=== PATIENT | male | born 1995 | race Caucasian/White ===

== ENCOUNTER 2018-05-07 18:49 | Emergency (ER) | payer OTHER ==
[~2018-05-07] VITALS: Ht 182.9 cm; Wt 112.2 kg
[~2018-05-07 18:49] MED LIST: FLUO40CA8 PO; LAMO200T35 PO; LURA40TA PO
[2018-05-07 19:00] VITALS: TEMP 37.3; Ht 182.9 cm; Wt 112.2 kg
[2018-05-07] MEDS ORDERED: OPTIRAY 320 IV PRN (19:45)
[2018-05-07 19:53] LABS: BASO % 0.3 %; BASO ABS # 0.02 K/uL (0-0.2); EOS % 0.4 %; EOS ABS # 0.03 K/uL (0-0.5); HEMATOCRIT 44.8 % (42-52); HEMOGLOBIN 15.5 g/dL (14.0-18.0); IG# 0.02 K/uL (0.00-0.02); LYMPH % 25.8 %; LYMPH ABS # 1.76 K/uL (1.2-3.4); MEAN CELL VOLUME 83.1 fL (80-100); MEAN CORPUSCULAR HEMOGLOBIN 28.8 pg (25-34); MEAN CORPUSCULAR HGB CONC 34.6 g/dl (32-36); MEAN PLATELET VOLUME 11.9 fL (7.4-10.4); MONO % 9.5 %; MONO ABS # 0.65 K/uL (0.11-0.59); NEUT % 63.7 %; NEUT ABS # 4.35 K/uL (1.4-6.5); PLATELET COUNT 167 K/uL (130-400); RED CELL DISTRIBUTION WIDTH CV 12.7 % (11.5-14.5); RED CELL DISTRIBUTION WIDTH SD 38.2 fL (36.4-46.3); WHITE BLOOD COUNT 6.83 K/uL (4.8-10.8)
[2018-05-07] MEDS ORDERED: IBUP-1428 PO (20:06)
[2018-05-07 20:16] LABS: ALBUMIN 4.5 gm/dl (3.4-5.0); CALCIUM 9.5 mg/dl (8.5-10.1); POTASSIUM 3.5 mmol/L (3.5-5.1); TOTAL PROTEIN 7.6 gm/dl (6.4-8.2)
--- NOTE | 2018-05-07 22:31 | DIAGNOSTIC IMAGING REPORT ---
CT SCAN OF THE ABDOMEN AND PELVIS WITH IV CONTRAST CLINICAL HISTORY: Lower abdominal pain. Constipation. COMPARISON STUDY: No priors. TECHNIQUE: Following the IV administration of 114 cc of Optiray 320, CT scan of the abdomen and pelvis is performed from the lung bases to the proximal femora. Images are reviewed in the axial, sagittal, and coronal planes. IV contrast was administered without complication. A dose lowering technique was utilized adhering to the principles of ALARA. CT DOSE: 768.42 mGy.cm FINDINGS: Lung bases: The heart is normal in size and without pericardial effusion. The lung bases are clear. Liver: The contrast-enhanced liver is normal in size, contour, and attenuation. There is no intrahepatic biliary ductal dilatation. The hepatic veins and portal veins are patent. Gallbladder: Unremarkable. Spleen: Normal in size and attenuation. Pancreas: Unremarkable. Adrenal glands: Unremarkable. Kidneys: The contrast enhanced kidneys are normal in size and without hydronephrosis. The kidneys enhance symmetrically. A subcentimeter cortical hypodensity arising exophytically from the interpolar right kidney on image #144 likely represents a tiny cyst but is too small for definitive characterization. Abdominal vasculature: The abdominal aorta is normal in course and caliber. 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 Prominent retroperitoneal venous collaterals are seen around both kidneys. Bowel: The small bowel and colon are normal in course and caliber. The appendix is well-visualized and normal. Peritoneum: There is no intraperitoneal free air or abdominal ascites. There is a small fat-containing umbilical hernia. Lymphadenopathy: There are numerous subcentimeter mesenteric lymph nodes. No pathologically enlarged lymph nodes identified in the abdomen or pelvis. Pelvic viscera: The bladder, prostate, and seminal vesicles are normal as visualized. There is a small fat-containing right inguinal hernia. Skeletal structures: No lytic or blastic lesions are seen. IMPRESSION: 1. There are numerous subcentimeter mesenteric lymph nodes. This findings of indeterminate significance, and could be seen in the setting of a nonspecific enteritis or possibly mesenteric adenitis. Cortical correlation will be required. 2. No additional infectious or inflammatory findings are identified in the abdomen or pelvis. 3. 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 Electronically signed by: Rafael Flores M.D. 05/07/2018 10:29 PM Dictated Date/Time: 05/07/2018 10:20 PM
[2018-05-07] MEDS ORDERED: ONDA4TAB10 SL (22:50)
--- NOTE | 2018-05-07 22:51 | EMERGENCY ROOM VISIT NOTE ---
History First contact with patient: 19:14 Chief Complaint: OTHER COMPLAINT Stated Complaint: POSSIBLE HERNIA History of Present Illness The patient is a 23 year old male who presents to the Emergency Room with complaints of constipation since Sunday. The patient states he has had very small, pellet-like bowel movements since that time. Today, he states he had an episode of a small amount of loose stools. He has been taking MiraLAX and OTC stool softeners without improvement in his symptoms. Today, he began experiencing suprapubic abdominal pain. He was seen at a walk-in clinic and was told that there was concern for possible inguinal hernia and was advised to come to the emergency department for further evaluation. The patient does report some mild urinary symptoms like he is not completely emptying his bladder. He states his urine is very dark in color. He does report a decreased appetite. The patient denies any fever, vomiting, nausea, chest pain , or dyspnea. He does report occasional lightheadedness, chills, and dizziness associated with the constipation. He denies any history of hernia or hernia repair. He denies any abdominal surgeries. The patient denies any recent fever or illness. He denies a history of bowel obstructions. Review of Systems A complete 10 point review of systems was reviewed with the patient with pertinent positives and negatives as per history of present illness. All else were negative. Past Medical/Surgical History Bipolar disorder Social History Smoking Status: Never Smoker Marital Status: single Occupation Status: employed Current/Historical Medications Scheduled Ondasetron Odt (Zofran Odt), 4 MG SL Q6H Scheduled PRN Ibuprofen (Motrin), 800 MG PO BID PRN for Pain or Fever Physical Exam Vital Signs Date Time Temp Pulse Resp B/P (MAP) Pulse Ox O2 Delivery O2 Flow Rate FiO2 05/07/18 22:24 72 18 144/82 98 Room Air 05/07/18 20:40 70 18 158/79 98 Room Air 05/07/18 19:00 37.3 73 18 169/81 98 Room Air Physical Exam VITALS: Vitals are noted on the nurse's note and reviewed by myself. Vital signs stable. GENERAL: This is a 23-year-old white male, in no acute distress, nondiaphoretic , well-developed well-nourished. SKIN: The skin was without rashes, erythema, edema, or bruising. There is no tenting of the skin. Capillary reflex less than 2 seconds. HEAD: Normocephalic atraumatic. EARS: External auditory canals clear, tympanic membranes pearly núñez without erythema or effusion bilaterally. EYES: Pupils equal round and reactive to light and accommodation. Conjunctivae without injection, sclerae without icterus. Extraocular movements intact. NOSE: Patent, turbinates without inflammation or discharge. No sinus tenderness. MOUTH: Mucous membranes moist. Tonsils are not enlarged. Pharynx without erythema or exudate. Uvula midline. Airway patent. Tongue does not deviate. NECK: Supple without nuchal rigidity. No lymphadenopathy. No thyromegaly. Cervical spine is nontender. No JVD. HEART: Regular rate and rhythm without murmurs gallops or rubs. LUNGS: Clear to auscultation bilaterally without wheezes, rales or rhonchi. No dullness to percussion. No retractions or accessory muscle use. ABDOMEN: Positive bowel sounds x 4. Normal tympanic percussion. Mildly tender suprapubic area. The abdomen is otherwise soft, nontender, without masses or organomegaly. Christie sign negative. No guarding or rebound tenderness. No obvious inguinal hernia noted on examination. MUSCULOSKELETAL: No muscle atrophy, erythema, or edema noted. Full range of motion without joint tenderness in all extremities. No tenderness to palpation. Normal gait. Strength 5/5 throughout. NEURO: Patient was alert and oriented to person place and time. Normal sensation to light and sharp touch. Deep tendon reflexes 2+ throughout. No focal neurological deficits. Medical Decision & Procedures ER Provider Diagnostic Interpretation: CT SCAN OF THE ABDOMEN AND PELVIS WITH IV CONTRAST CLINICAL HISTORY: Lower abdominal pain. Constipation. COMPARISON STUDY: No priors. TECHNIQUE: Following the IV administration of 114 cc of Optiray 320, CT scan of the abdomen and pelvis is performed from the lung bases to the proximal femora. Images are reviewed in the axial, sagittal, and coronal planes. IV contrast was administered without complication. A dose lowering technique was utilized adhering to the principles of ALARA. CT DOSE: 768.42 mGy.cm FINDINGS: Lung bases: The heart is normal in size and without pericardial effusion. The lung bases are clear. Liver: The contrast-enhanced liver is normal in size, contour, and attenuation. There is no intrahepatic biliary ductal dilatation. The hepatic veins and portal veins are patent. Gallbladder: Unremarkable. Spleen: Normal in size and attenuation. Pancreas: Unremarkable. Adrenal glands: Unremarkable. Kidneys: The contrast enhanced kidneys are normal in size and without hydronephrosis. The kidneys enhance symmetrically. A subcentimeter cortical hypodensity arising exophytically from the interpolar right kidney on image #144 likely represents a tiny cyst but is too small for definitive characterization. Abdominal vasculature: The abdominal aorta is normal in course and caliber. 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 Prominent retroperitoneal venous collaterals are seen around both kidneys. Bowel: The small bowel and colon are normal in course and caliber. The appendix is well-visualized and normal. Peritoneum: There is no intraperitoneal free air or abdominal ascites. There is a small fat-containing umbilical hernia. Lymphadenopathy: There are numerous subcentimeter mesenteric lymph nodes. No pathologically enlarged lymph nodes identified in the abdomen or pelvis. Pelvic viscera: The bladder, prostate, and seminal vesicles are normal as visualized. There is a small fat-containing right inguinal hernia. Skeletal structures: No lytic or blastic lesions are seen. IMPRESSION: 1. There are numerous subcentimeter mesenteric lymph nodes. This findings of indeterminate significance, and could be seen in the setting of a nonspecific enteritis or possibly mesenteric adenitis. Cortical correlation will be required. 2. No additional infectious or inflammatory findings are identified in the abdomen or pelvis. 3. 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 Electronically signed by: Rafael Flores M.D. 05/07/2018 10:29 PM Dictated Date/Time: 05/07/2018 10:20 PM Laboratory Results 05/07/18 19:40 Red Blood Count 5.39, Mean Corpuscular Volume 83.1, Mean Corpuscular Hemoglobin 28.8, Mean Corpuscular Hemoglobin Concent 34.6, Mean Platelet Volume 11.9, Neutrophils (%) (Auto) 63.7, Lymphocytes (%) (Auto) 25.8, Monocytes (%) (Auto) 9.5, Eosinophils (%) (Auto) 0.4, Basophils (%) (Auto) 0.3, Neutrophils # (Auto) 4.35, Lymphocytes # (Auto) 1.76, Monocytes # (Auto) 0.65, Eosinophils # (Auto) 0.03, Basophils # (Auto) 0.02 05/07/18 19:40 Test 8/21/18 19:30 05/07/18 19:40 Urine Color DK YELLOW Urine Appearance CLEAR (CLEAR) Urine pH 5.0 (4.5-7.5) Urine Specific Perry 1.025 (1.000-1.030) Urine Protein NEG (NEG) Urine Glucose (UA) NEG (NEG) Urine Ketones 1+ (NEG) Urine Occult Blood NEG (NEG) Urine Nitrite NEG (NEG) Urine Bilirubin NEG (NEG) Urine Urobilinogen NEG (NEG) Urine Leukocyte Esterase NEG (NEG) White Blood Count 6.83 K/uL (4.8-10.8) Red Blood Count 5.39 M/uL (4.7-6.1) Hemoglobin 15.5 g/dL (14.0-18.0) Hematocrit 44.8 % (42-52) Mean Corpuscular Volume 83.1 fL (80-100) Mean Corpuscular Hemoglobin 28.8 pg (25-34) Mean Corpuscular Hemoglobin Concent 34.6 g/dl (32-36) Platelet Count 167 K/uL (130-400) Mean Platelet Volume 11.9 fL (7.4-10.4) Neutrophils (%) (Auto) 63.7 % Lymphocytes (%) (Auto) 25.8 % Monocytes (%) (Auto) 9.5 % Eosinophils (%) (Auto) 0.4 % Basophils (%) (Auto) 0.3 % Neutrophils # (Auto) 4.35 K/uL (1.4-6.5) Lymphocytes # (Auto) 1.76 K/uL (1.2-3.4) Monocytes # (Auto) 0.65 K/uL (0.11-0.59) Eosinophils # (Auto) 0.03 K/uL (0-0.5) Basophils # (Auto) 0.02 K/uL (0-0.2) RDW Standard Deviation 38.2 fL (36.4-46.3) RDW Coefficient of Variation 12.7 % (11.5-14.5) Immature Granulocyte % (Auto) 0.3 % Immature Granulocyte # (Auto) 0.02 K/uL (0.00-0.02) Anion Gap 10.0 mmol/L (3-11) Est Creatinine Clear Calc Drug Dose 146.1 ml/min Estimated GFR () 120.7 Estimated GFR (Non- 104.1 BUN/Creatinine Ratio 11.6 (10-20) Calcium Level 9.5 mg/dl (8.5-10.1) Total Bilirubin 0.9 mg/dl (0.2-1) Aspartate Amino Transf (AST/SGOT) 11 U/L (15-37) Alanine Aminotransferase (ALT/SGPT) 21 U/L (12-78) Alkaline Phosphatase 68 U/L (45-117) Total Protein 7.6 gm/dl (6.4-8.2) Albumin 4.5 gm/dl (3.4-5.0) Globulin 3.1 gm/dl (2.5-4.0) Albumin/Globulin Ratio 1.5 (0.9-2) Chemistry Specimen Hemolysis ED Course The patient was seen and evaluated as above. IV access obtained, labs drawn. Imaging performed and reviewed by myself and radiologist as above. Labs reviewed by myself. I discussed the findings with the patient at bedside. Discharge instructions reviewed, the patient was discharged home in good condition. Medical Decision This is a 23-year-old male patient presents emergency department today complaining of constipation since Sunday and lower abdominal pain which began today. Patient states he went to a walk-in clinic and was told to come to the emergency department due to concern for an inguinal hernia. On examination, the patient does not have a surgical abdomen. CT scan reveals a small fat- containing inguinal hernia as well as a fat-containing umbilical hernia. Otherwise, there were some subcentimeter mesenteric lymph nodes noted. Labs did not reveal any significant leukocytosis, anemia, thrombocytopenia. Urinalysis does not show any evidence for urinary tract infection, renal, hepatic function and electrolytes without abnormalities. I suspect a possible viral etiology versus abdominal pain related to the constipation and straining. I advised the patient to drink plenty of fluids and increase his fiber intake. He was encouraged to follow-up with his primary care provider for further evaluation and management of his symptoms. All questions were answered to patient's satisfaction prior to discharge. Etiologies such as appendicitis, diverticulitis, obstruction, inflammatory bowel disease, renal colic, PUD, biliary pathology, pancreatitis, mesenteric ischemia, aortic pathology, infections, genitourinary, UTI, perforated viscus, as well as others were entertained. The chart was completed utilizing [employer] Speech voice recognition software. Grammatical errors, random word insertions, pronoun errors, and incomplete sentences are an occasional consequence of this system due to software limitations, ambient noise, and hardware issues. Any formal questions or concerns about the content, text, or information contained within the body of this dictation should be directly addressed to the provider for clarification. Medication Reconcilliation Current Medication List: was personally reviewed by me Blood Pressure Screening Patient's blood pressure: Normal blood pressure Impression Primary Impression: Abdominal pain Additional Impression: Constipation Departure Information Dispostion Home / Self-Care Condition GOOD Prescriptions Ondasetron Odt (ZOFRAN ODT) 4 Mg Tab 4 MG SL Q6H for Nausea, #6 TAB Prov: Concepcion Mercado PA-C 05/07/18 Referrals No Doctor, Assigned (PCP) Patient Instructions ED Abdominal Pain Unkn Cause Male, My [facility] Additional Instructions You have been treated in the Emergency Department your Abdominal Pain. Laboratory results and imaging studies have ruled out any emergent causes for your abdominal pain which would warrant admission or surgery. As discussed, the CT scan did note a small, fat-containing right inguinal hernia. I do not believe that this is the cause of your symptoms. You have been prescribed Zofran to be used for any nausea or vomiting. Take as prescribed. For pain control, you can use the following [id number] medicines (if >12 yo): Ibuprofen(Motrin, Advil) may be used for fever or pain. Use 600mg every six hours as needed. Take with food. Avoid using more than 2400mg in a 24 hour period. Do not use 2400mg per day for more than three consecutive days without physician direction. Prolonged inappropriate use can lead to stomach upset or ulcers. (AND/OR) Acetaminophen(Tylenol) may be used for fever or pain. Use 1000mg every six hours as needed. Avoid using more than 3000mg in a 24 hour period. Drink plenty of water and stay well hydrated. Increase the fiber in your diet. This will help to move the bowels. As with any trip to the Emergency Department, you should follow-up with your Primary Care Provider from today's visit. Return to the emergency department if your symptoms persist despite treatment plan outlined above or if the following symptoms occur: increased fevers, chills , worsening nausea/vomiting, blood in your stool or urine. Problem Qualifiers Primary Impression: Abdominal pain Abdominal location: lower abdomen, unspecified Qualified Codes: R10.30 - Lower abdominal pain, unspecified Additional Impression: Constipation Constipation type: unspecified constipation type Qualified Codes: K59.00 - Constipation, unspecified
[2018-05-07 22:59] VITALS: BP 136/72; PULSE 58; O2SAT 96
== END 2018-05-07 22:58 | disposition home or self-care (01) ==
LOC: C.EDB 18:50
DX: K59.00 Constipation, unspecified (principal); R33.9 Retention of urine, unspecified; R42 Dizziness and giddiness; R68.83 Chills (without fever)